=== PATIENT | male | born 1990 | race Caucasian/White ===

== ENCOUNTER 2016-06-06 17:18 | Emergency (ER) | payer BC ==
--- NOTE | 2016-06-06 18:00 | ED NURSING NOTES ---
Clinical Report - Nurses [facility] [address] [place] [address] 06/06/2016 17:19 Patient: VERONIKA MAGALLON TRIAGE Triage time 17:Jun 06 2016. Acuity: LEVEL 3. Chief Complaint: INJURY TO THE RIGHT LITTLE FINGER. IVETH COMA SCORE: [place] Coma Scale: 15- eyes open spontaneously (4); best verbal response- oriented x 4 (5); best motor response- obeys commands (6). --17:28 Gilbert Ellis R.N. 17:25 06/06/16. BP: 143/76. HR: 80. RR: 18. O2 saturation: 98%. Temp: 98.6 F. Pain level now 0/10. --17:28 Gilbert Ellis R.N. Weight: 82.5 kg stated. Height/Length: 72 inches Per Patient. BMI: 24.7. --17:28 Gilbert Ellis R.N. Medications None. --17:26 Gilbert Ellis R.N. Allergies No Known Drug Allergy. --17:27 Gilbert Ellis R.N. History Arrived by private vehicle. Historian: patient. Accompanied by family. This occurred just prior to arrival. He sustained a laceration. ( Got his finger caught in the slider of a gun and it's been bleeding pretty good.). No neck pain, weakness or numbness. 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 PAST MEDICAL HX: Tetanus status: unknown. SOCIAL HX: Current every day light tobacco smoker (cigarette)- less than 1/2 a pack per day. Regular alcohol use. No drug use. SELF HARM ASSESSMENT: A self harm assessment was performed. The patient answered "no" to the question "Have you recently felt down, depressed, or hopeless?" and "Do you have thoughts of harming or killing yourself?". FALL RISK ASSESSMENT: Fall risk assessment completed. No fall risk identified. NUTRITIONAL RISK ASSESSMENT: The nutritional risk assessment revealed no deficiencies. FUNCTIONAL ASSESSMENT: Functional assessment: no impairments noted. LEARNING NEEDS ASSESSMENT: The learning needs assessment revealed no barriers. ABUSE ASSESSMENT: Abuse assessment: (yes) The patient was asked "Do you feel safe in your home?". SKIN INTEGRITY ASSESSMENT: Skin integrity risk assessment completed. No skin integrity risk identified. --17:28 Gilbert Ellis R.N. PROBLEMS: no known problems. ADDITIONAL SURGERIES: no known surgeries. Interventions ID band on patient. --17:28 Gilbert Ellis R.N. PHYSICAL ASSESSMENT Ambulatory to room. GENERAL / NEURO / PSYCH: Oriented X 4. Alert. Appears in no acute distress. EXTREMITIES: Capillary refill is less than 2 seconds in the extremities. Extremity pulses are within normal limits. Extremities exhibit normal ROM. Neuro-vascular status intact to the extremity. SKIN: Skin is warm and dry. Laceration. --17:40 Gilbert lElis R.N. NURSING PROGRESS NOTES Extremity elevated. Reassurance given. Call light placed in reach. Side rails up x 1. Bed placed in lowest position. Brakes of bed on. --17:40 Gilbert Ellis R.N. 17:43 06/06/16. Wound irrigated with 500 mL sterile NS using a high-pressure irrigation system; patient tolerated procedure well. --17:43 Lalo Monson 17:53 06/06/2016 JHZNRTP-QPSNGI-JNHKL PERTUSSIS IM 0.5 mL given. (Lot#: [id number], expiration date: 12/12/2017, Supervisor Salvage: sanofi pasteur). Given in the left deltoid. Allergies verified and confirmed 5 rights. Vaccine information statement provided to the patient. --17:53 Gilbert Ellis R.N. 17:55 06/06/16. Applied dressing consisting of Band-Aid. --17:56 Lalo Monson 17:56 06/06/16. Finger splint applied to right little finger by tech (STAX FINGER SPLINT). --17:56 Lalo Monson. DISPOSITION / DISCHARGE Departure time: 18:05 Jun 06 2016. Condition at departure: improved. No learning barriers present. Discharge instructions provided and reviewed with the patient. Reviewed warnings. Reviewed medication(s). Treatments reviewed. Reviewed referrals. Verbalized understanding. Written instructions provided in Italian. The patient was discharged home and accompanied by sock lining examiner. He left the Emergency Department ambulatory and via private vehicle. Wrist Liner driving. --18:14 Gilbert Ellis R.N. 17:25 06/06/16. BP: 143/76. HR: 80. RR: 18. O2 saturation: 98%. Temp: 98.6 F. Pain level now 0/10. --18:14 Gilbert Ellis R.N. Locked/Released at 06/06/2016 19:16 by Gilbert Ellis R.N.
--- NOTE | 2016-06-06 18:00 | ED NURSING NOTES ---
Clinical Report - Nurses [facility] [address] [place] [address] 06/06/2016 17:19 Patient: VERONIKA MAGALLON TRIAGE Triage time 17:Jun 06 2016. Acuity: LEVEL 3. Chief Complaint: INJURY TO THE RIGHT LITTLE FINGER. IVETH COMA SCORE: [place] Coma Scale: 15- eyes open spontaneously (4); best verbal response- oriented x 4 (5); best motor response- obeys commands (6). --17:28 Gilbert Ellis R.N. 17:25 06/06/16. BP: 143/76. HR: 80. RR: 18. O2 saturation: 98%. Temp: 98.6 F. Pain level now 0/10. --17:28 Gilbert Ellis R.N. Weight: 82.5 kg stated. Height/Length: 72 inches Per Patient. BMI: 24.7. --17:28 Gilbert Ellis R.N. Medications None. --17:26 Gilbert Ellis R.N. Allergies No Known Drug Allergy. --17:27 Gilbert Ellis R.N. History Arrived by private vehicle. Historian: patient. Accompanied by family. This occurred just prior to arrival. He sustained a laceration. ( Got his finger caught in the slider of a gun and it's been bleeding pretty good.). No neck pain, weakness or numbness. 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 PAST MEDICAL HX: Tetanus status: unknown. SOCIAL HX: Current every day light tobacco smoker (cigarette)- less than 1/2 a pack per day. Regular alcohol use. No drug use. SELF HARM ASSESSMENT: A self harm assessment was performed. The patient answered "no" to the question "Have you recently felt down, depressed, or hopeless?" and "Do you have thoughts of harming or killing yourself?". FALL RISK ASSESSMENT: Fall risk assessment completed. No fall risk identified. NUTRITIONAL RISK ASSESSMENT: The nutritional risk assessment revealed no deficiencies. FUNCTIONAL ASSESSMENT: Functional assessment: no impairments noted. LEARNING NEEDS ASSESSMENT: The learning needs assessment revealed no barriers. ABUSE ASSESSMENT: Abuse assessment: (yes) The patient was asked "Do you feel safe in your home?". SKIN INTEGRITY ASSESSMENT: Skin integrity risk assessment completed. No skin integrity risk identified. --17:28 Gilbert Ellis R.N. PROBLEMS: no known problems. ADDITIONAL SURGERIES: no known surgeries. Interventions ID band on patient. --17:28 Gilbert Ellis R.N. PHYSICAL ASSESSMENT Ambulatory to room. GENERAL / NEURO / PSYCH: Oriented X 4. Alert. Appears in no acute distress. EXTREMITIES: Capillary refill is less than 2 seconds in the extremities. Extremity pulses are within normal limits. Extremities exhibit normal ROM. Neuro-vascular status intact to the extremity. SKIN: Skin is warm and dry. Laceration. --17:40 Gilbert Ellis R.N. NURSING PROGRESS NOTES Extremity elevated. Reassurance given. Call light placed in reach. Side rails up x 1. Bed placed in lowest position. Brakes of bed on. --17:40 Gilbert Ellis R.N. 17:43 06/06/16. Wound irrigated with 500 mL sterile NS using a high-pressure irrigation system; patient tolerated procedure well. --17:43 Lalo Monson 17:53 06/06/2016 UYQQWZF-OLVMIR-NHWPS PERTUSSIS IM 0.5 mL given. (Lot#: [id number], expiration date: 12/12/2017, Welding Machine Operator Arc: sanofi pasteur). Given in the left deltoid. Allergies verified and confirmed 5 rights. Vaccine information statement provided to the patient. --17:53 Gilbert Ellis R.N. 17:55 06/06/16. Applied dressing consisting of Band-Aid. --17:56 Lalo Monson 17:56 06/06/16. Finger splint applied to right little finger by tech (STAX FINGER SPLINT). --17:56 Lalo Monson. DISPOSITION / DISCHARGE Departure time: 18:05 Jun 06 2016. Condition at departure: improved. No learning barriers present. Discharge instructions provided and reviewed with the patient. Reviewed warnings. Reviewed medication(s). Treatments reviewed. Reviewed referrals. Verbalized understanding. Written instructions provided in Romansh. The patient was discharged home and accompanied by lead systems architect. He left the Emergency Department ambulatory and via private vehicle. Lieutenant Shift Supervisor driving. --18:14 Gilbert Ellis R.N. 17:25 06/06/16. BP: 143/76. HR: 80. RR: 18. O2 saturation: 98%. Temp: 98.6 F. Pain level now 0/10. --18:14 Gilbert Ellis R.N. Locked/Released at 06/06/2016 19:16 by Gilbert Ellis R.N.
--- NOTE | 2016-06-06 18:00 | ED CLINICAL REPORT ---
Clinical Report - Physicians/Mid Levels [facility] [address] [place] [address] 06/06/2016 17:19 [id number] Time Seen: 17:38 Jun 06 2016. Arrived- By private vehicle. HISTORY OF PRESENT ILLNESS Chief Complaint: Injury to the right 5th (little) finger. The injury happened just prior to arrival. The patient sustained a laceration. ( Patient sustained a laceration to his right hand from a sharp metal object just prior to arrival. Patient arrived on area, came to the emergency department.). REVIEW OF SYSTEMS The patient sustained a laceration. All systems otherwise negative, except as recorded above. PAST HISTORY The patient's dominant hand is the right. He has not had a prior injury to the same area. Tetanus immunization status is unknown. SOCIAL HISTORY Smoker- current status unknown. Alcohol use. ADDITIONAL NOTES The nursing notes have been reviewed. PHYSICAL EXAM Appearance: Alert. Head: Head atraumatic. ENT: Ears normal. CVS: Normal heart rate and rhythm. Heart sounds normal. Respiratory: No respiratory distress. Breath sounds normal. Skin: Skin warm. Extremities: Tip of right little finger: (distal lac at dorsal aspect partial thickness 0.7 cm and lateral to such small 0.3 cm , full rom, good sensation). No wrist injury. Neuro, Vascular and Tendons: Vascular status intact. Motor intact. Neuro: Oriented X 3. PROGRESS AND PROCEDURES PROCEDURES (dermabdon, steri-strips.). Course of Care: No osseous tenderness, no distress. Very stable. NO signs of tendon, ligamentous, neurovascular injury. No signs of nail injury. Patient is stable. Symptoms better. Patient/family counseled. Disposition: Condition: good. CLINICAL IMPRESSION Laceration to the right little finger. INSTRUCTIONS (leave splint on for 48 hours). Warnings: TETANUS: You were given a tetanus shot during your visit. Make a note for future reference. OTC Medications: Take OTC medications according to label instructions. Available over the counter. Acetaminophen (available over the counter): take according to label instructions. Motrin (available over the counter): take according to label instructions. (Electronically signed by Ailyn Ybarra P.A.-C 06/06/2016 19:03)
--- NOTE | 2016-06-06 18:00 | ED ORDER SUMMARY ---
..... Patient: VERONIKA MAGALLON OrderSheet [facility] VisitID: [id number] [address] [place] [address] 25y, M Registration Date/Time: 06/06/2016 ORDER SHEET Weight: 82.5 kg (stated) Allergies: No Known Drug Allergy GENERAL ORDERS: MEDICATION ORDERS: Radughs-Mxyhyg-Gqhaw Pertussis IM 0.5 mL (NOW, per protocol) (17:52 06/06/2016 LWhalen R.N. per protocol) (17:53 LWhalen R.N.) IV FLUIDS: ORDER SHEET NOTES: [Electronically signed by Ailyn Ybarra P.A.-C (19:03 06/06/2016)] [Electronically signed by Gilbert Ellis R.N. (19:16 06/06/2016)] [Electronically locked/signed by Gilbert Ellis R.N. (19:16 06/06/2016)]
--- NOTE | 2016-06-06 18:00 | ED ORDER SUMMARY ---
..... Patient: VERONIKA MAGALLON OrderSheet [facility] VisitID: [id number] [address] [place] [address] 25y, M Registration Date/Time: 06/06/2016 ORDER SHEET Weight: 82.5 kg (stated) Allergies: No Known Drug Allergy GENERAL ORDERS: MEDICATION ORDERS: Jgipowm-Vjmytq-Oxzdu Pertussis IM 0.5 mL (NOW, per protocol) (17:52 06/06/2016 LWhalen R.N. per protocol) (17:53 LWhalen R.N.) IV FLUIDS: ORDER SHEET NOTES: [Electronically signed by Ailyn Ybarra P.A.-C (19:03 06/06/2016)] [Electronically signed by Gilbert Ellis R.N. (19:16 06/06/2016)] [Electronically locked/signed by Gilbert Ellis R.N. (19:16 06/06/2016)]
--- NOTE | 2016-06-06 18:00 | ED CLINICAL REPORT ---
Clinical Report - Physicians/Mid Levels [facility] [address] [place] [address] 06/06/2016 17:19 [id number] Time Seen: 17:38 Jun 06 2016. Arrived- By private vehicle. HISTORY OF PRESENT ILLNESS Chief Complaint: Injury to the right 5th (little) finger. The injury happened just prior to arrival. The patient sustained a laceration. ( Patient sustained a laceration to his right hand from a sharp metal object just prior to arrival. Patient arrived on area, came to the emergency department.). REVIEW OF SYSTEMS The patient sustained a laceration. All systems otherwise negative, except as recorded above. PAST HISTORY The patient's dominant hand is the right. He has not had a prior injury to the same area. Tetanus immunization status is unknown. SOCIAL HISTORY Smoker- current status unknown. Alcohol use. ADDITIONAL NOTES The nursing notes have been reviewed. PHYSICAL EXAM Appearance: Alert. Head: Head atraumatic. ENT: Ears normal. CVS: Normal heart rate and rhythm. Heart sounds normal. Respiratory: No respiratory distress. Breath sounds normal. Skin: Skin warm. Extremities: Tip of right little finger: (distal lac at dorsal aspect partial thickness 0.7 cm and lateral to such small 0.3 cm , full rom, good sensation). No wrist injury. Neuro, Vascular and Tendons: Vascular status intact. Motor intact. Neuro: Oriented X 3. PROGRESS AND PROCEDURES PROCEDURES (dermabdon, steri-strips.). Course of Care: No osseous tenderness, no distress. Very stable. NO signs of tendon, ligamentous, neurovascular injury. No signs of nail injury. Patient is stable. Symptoms better. Patient/family counseled. Disposition: Condition: good. CLINICAL IMPRESSION Laceration to the right little finger. INSTRUCTIONS (leave splint on for 48 hours). Warnings: TETANUS: You were given a tetanus shot during your visit. Make a note for future reference. OTC Medications: Take OTC medications according to label instructions. Available over the counter. Acetaminophen (available over the counter): take according to label instructions. Motrin (available over the counter): take according to label instructions. (Electronically signed by Ailyn Ybarra P.A.-C 06/06/2016 19:03)
--- NOTE | 2016-06-06 19:16 | ED MAR SUMMARY ---
..... Medication Administration Record [facility] [address] [place] [address] Patient: VERONIKA MAGALLON Visit ID: [id number] 25y, M Weight: 82.5 kg Height/Length: 72 in BMI: 24.7 ALLERGIES: No Known Drug Allergy Given 17:53 06/06/2016 Gilbert Ellis R.N. Medication Administered: GDWMUCW-QCHVKV-NMONL PERTUSSIS [IM], Dose: 0.5 mL IM. Medication Ordered: Haoflxw-Cmnycx-Khoyv Pertussis IM 0.5 mL (NOW, per protocol).
--- NOTE | 2016-06-06 19:16 | ED DISCHARGE INSTRUCTIONS ---
Patient: VERONIKA MAGALLON General Instructions [facility] VisitID: [id number] [place] [address] 25y, M Registration Date/Time: 06/06/2016 Laceration to the right little finger. INSTRUCTIONS (leave splint on for 48 hours). Warnings: TETANUS: You were given a tetanus shot during your visit. Make a note for future reference. OTC Medications: Take OTC medications according to label instructions. Available over the counter. Acetaminophen (available over the counter): take according to label instructions. Motrin (available over the counter): take according to label instructions. ADDITIONAL INFORMATION Laceration(Skin Glue) A laceration is a cut through the skin. You have a laceration that has been closed with a type of skin glue. Home Care Medications: Acetaminophen (Tylenol) or ibuprofen (Motrin, Advil) may be taken for pain, unless another pain medicine was prescribed. NOTE: If you have chronic liver or kidney disease or ever had a stomach ulcer or GI bleeding, talk with your doctor before using these medications. General Care: Keep the wound clean and dry. You may shower or bathe as usual, but do not use soaps, lotions, or ointments on the wound area. Do not scrub the wound. After bathing, pat the wound dry with a soft towel. If a bandage was applied and it becomes wet or dirty, replace it. Otherwise, change the bandage every 24 hours. Do not scratch, rub, or pick at the film. Do not place tape directly over the film. Do not apply liquids (such as peroxide), ointments, or creams to the wound while the film is in place. Most skin wounds heal without problems. However, an infection sometimes occurs despite proper treatment. Therefore, watch for the signs of infection listed below. Follow Up as directed by the doctor or our staff. The skin glue film will fall off naturally in 5 to 10 days. Get Prompt Medical Attention if any of the following occur: Signs of infection: Fever of 100.4F (38C) or higher, or as directed by your healthcare provider Increasing pain in the wound Increasing redness or swelling Pus coming from the wound Wound bleeds more than a small amount or bleeding doesnt stop Wound edges come apart You feel numbness or weakness in the wound area that doesnt go away Diphtheria Toxoid Adsorbed, Pertussis Vaccine, Acellular (Adsorbed), Tetanus Toxoid, Adsorbed Suspension for injection What is this medicine? DIPHTHERIA and TETANUS TOXOIDS; PERTUSSIS VACCINE (dif THEER ee uh and TET n us TOK soids; per TUS iss faustinak SEEN) is used to prevent diphtheria, tetanus, and pertussis infections. How should I use this medicine? This vaccine is for injection into a muscle. It is given by a health health careers instructor. A copy of Vaccine Information Statements will be given before each vaccination. Read this sheet carefully each time. The sheet may change frequently. Talk to your social work administrator regarding the use of this vaccine in children. While the DTP vaccine may be given to children ages 6 weeks to 7 years and the Tdap vaccine may be given to children at least 10 years old, precautions do apply. What side effects may I notice from receiving this medicine? Side effects that you should report to your doctor or health health careers instructor as soon as possible: allergic reactions like skin rash, itching or hives, swelling of the face, lips, or tongue breathing problems fever of 103 degrees F or more flu-like symptoms inconsolable crying infection pain, tingling, numbness in the hands or feet seizures swelling of arm or leg that was injected unusually weak or tired Side effects that usually do not require immediate medical attention (report these side effects to your doctor or health health careers instructor if they continue or are bothersome): fussy, irritable loss of appetite fever of 102 degrees F or less pain, tenderness, redness, swelling, or a 'knot' at site where injected vomiting What may interact with this medicine? immune globulin medicines that suppress your immune function like adalimumab, anakinra, infliximab medicines to treat cancer medicines that treat or prevent blood clots like warfarin, enoxaparin, and dalteparin steroid medicines like prednisone or cortisone What if I miss a dose? It is important not to miss your dose. Call your doctor or health health careers instructor if you are unable to keep an appointment. Where should I keep my medicine? This drug is given in a hospital or clinic and will not be stored at home. What should I tell my health care provider before I take this medicine? They need to know if you have any of these conditions: blood disorders like hemophilia fever or infection immune system problems neurologic disease seizures an unusual or allergic reaction to vaccines, thimerosal, latex, other medicines, foods, dyes, or preservatives or trying to get breast-feeding What should I watch for while using this medicine? See your health care provider for all shots of this vaccine as directed. To have protection from infection, you must have 3 shots of this vaccine plus boosters as needed. Tell your doctor right away if you have any serious or unusual side effects after getting this vaccine. You have been given the following additional information: Laceration, Extremity (Skin Glue) Diphtheria Toxoid Adsorbed, Pertussis Vaccine, Acellular (Adsorbed), Tetanus Toxoid, Adsorbed Suspension for injection (Electronically signed by Ailyn Ybarra P.A.-C 06/06/2016 19:03)
--- NOTE | 2016-06-06 19:16 | ED MAR SUMMARY ---
..... Medication Administration Record [facility] [address] [place] [address] Patient: VERONIKA MAGALLON Visit ID: [id number] 25y, M Weight: 82.5 kg Height/Length: 72 in BMI: 24.7 ALLERGIES: No Known Drug Allergy Given 17:53 06/06/2016 Gilbert Ellis R.N. Medication Administered: AIGBVIJ-KPTLOH-ZYJQY PERTUSSIS [IM], Dose: 0.5 mL IM. Medication Ordered: Ppdnxhx-Pjqlzv-Zarwr Pertussis IM 0.5 mL (NOW, per protocol).
--- NOTE | 2016-06-06 19:16 | ED MED RECONCILIATION SUMMARY ---
Patient: VERONIKA MAGALLON Medication Reconciliation Report [facility] VisitID: [id number] [place] [address] 25y, M Registration Date/Time: 06/06/2016 Weight: 82.5 kg Height/Length: 72 in. BMI: 24.7 ALLERGIES: No Known Drug Allergy The patient's Home Medications are listed below: NONE. The source(s) of the original Home Medication information: Not obtained. The following Medications were given to the patient in the Emergency Department: JQZAMFL-INCIDI-WUNTT PERTUSSIS [IM] IM 0.5 mL, administered: 06/06/2016 5:53:00 PM The following Medications were prescribed to the patient: Take OTC medications according to label instructions. Available over the counter. -- Ailyn Ybarra, P.A.-C Acetaminophen (available over the counter): take according to label instructions. -- Ailyn Ybarra, P.A.-C Motrin (available over the counter): take according to label instructions. -- Aiyln Ybarra, P.A.-C
--- NOTE | 2016-06-06 19:16 | ED MED RECONCILIATION SUMMARY ---
Patient: VERONIKA MAGALLON Medication Reconciliation Report [facility] VisitID: [id number] [place] [address] 25y, M Registration Date/Time: 06/06/2016 Weight: 82.5 kg Height/Length: 72 in. BMI: 24.7 ALLERGIES: No Known Drug Allergy The patient's Home Medications are listed below: NONE. The source(s) of the original Home Medication information: Not obtained. The following Medications were given to the patient in the Emergency Department: TUBGAMQ-GKDKDK-HQLNF PERTUSSIS [IM] IM 0.5 mL, administered: 06/06/2016 5:53:00 PM The following Medications were prescribed to the patient: Take OTC medications according to label instructions. Available over the counter. -- Ailyn Ybarra, P.A.-C Acetaminophen (available over the counter): take according to label instructions. -- Ailyn Ybarra, P.A.-C Motrin (available over the counter): take according to label instructions. -- Ailyn Ybarra, P.A.-C
--- NOTE | 2016-06-06 19:16 | ED DISCHARGE INSTRUCTIONS ---
Patient: VERONIKA MAGALLON General Instructions [facility] VisitID: [id number] [place] [address] 25y, M Registration Date/Time: 06/06/2016 Laceration to the right little finger. INSTRUCTIONS (leave splint on for 48 hours). Warnings: TETANUS: You were given a tetanus shot during your visit. Make a note for future reference. OTC Medications: Take OTC medications according to label instructions. Available over the counter. Acetaminophen (available over the counter): take according to label instructions. Motrin (available over the counter): take according to label instructions. ADDITIONAL INFORMATION Laceration(Skin Glue) A laceration is a cut through the skin. You have a laceration that has been closed with a type of skin glue. Home Care Medications: Acetaminophen (Tylenol) or ibuprofen (Motrin, Advil) may be taken for pain, unless another pain medicine was prescribed. NOTE: If you have chronic liver or kidney disease or ever had a stomach ulcer or GI bleeding, talk with your doctor before using these medications. General Care: Keep the wound clean and dry. You may shower or bathe as usual, but do not use soaps, lotions, or ointments on the wound area. Do not scrub the wound. After bathing, pat the wound dry with a soft towel. If a bandage was applied and it becomes wet or dirty, replace it. Otherwise, change the bandage every 24 hours. Do not scratch, rub, or pick at the film. Do not place tape directly over the film. Do not apply liquids (such as peroxide), ointments, or creams to the wound while the film is in place. Most skin wounds heal without problems. However, an infection sometimes occurs despite proper treatment. Therefore, watch for the signs of infection listed below. Follow Up as directed by the doctor or our staff. The skin glue film will fall off naturally in 5 to 10 days. Get Prompt Medical Attention if any of the following occur: Signs of infection: Fever of 100.4F (38C) or higher, or as directed by your healthcare provider Increasing pain in the wound Increasing redness or swelling Pus coming from the wound Wound bleeds more than a small amount or bleeding doesnt stop Wound edges come apart You feel numbness or weakness in the wound area that doesnt go away Diphtheria Toxoid Adsorbed, Pertussis Vaccine, Acellular (Adsorbed), Tetanus Toxoid, Adsorbed Suspension for injection What is this medicine? DIPHTHERIA and TETANUS TOXOIDS; PERTUSSIS VACCINE (dif THEER ee uh and TET n us TOK soids; per TUS iss fa[place] SEEN) is used to prevent diphtheria, tetanus, and pertussis infections. How should I use this medicine? This vaccine is for injection into a muscle. It is given by a [facility] care [facility]. A copy of Vaccine Information Statements will be given before each vaccination. Read this sheet carefully each time. The sheet may change frequently. Talk to your teacher [facility] regarding the use of this vaccine in children. While the DTP vaccine may be given to children ages 6 weeks to 7 years and the Tdap vaccine may be given to children at least 10 years old, precautions do apply. What side effects may I notice from receiving this medicine? Side effects that you should report to your doctor or [facility] as soon as possible: allergic reactions like skin rash, itching or hives, swelling of the face, lips, or tongue breathing problems fever of 103 degrees F or more flu-like symptoms inconsolable crying infection pain, tingling, numbness in the hands or feet seizures swelling of arm or leg that was injected unusually weak or tired Side effects that usually do not require immediate medical attention (report these side effects to your doctor or [facility] if they continue or are bothersome): fussy, irritable loss of appetite fever of 102 degrees F or less pain, tenderness, redness, swelling, or a 'knot' at site where injected vomiting What may interact with this medicine? immune globulin medicines that suppress your immune function like adalimumab, anakinra, infliximab medicines to treat cancer medicines that treat or prevent blood clots like warfarin, enoxaparin, and dalteparin steroid medicines like prednisone or cortisone What if I miss a dose? It is important not to miss your dose. Call your doctor or [facility] if you are unable to keep an appointment. Where should I keep my medicine? This drug is given in a hospital or clinic and will not be stored at home. What should I tell my health care provider before I take this medicine? They need to know if you have any of these conditions: blood disorders like hemophilia fever or infection immune system problems neurologic disease seizures an unusual or allergic reaction to vaccines, thimerosal, latex, other medicines, foods, dyes, or preservatives or trying to get breast-feeding What should I watch for while using this medicine? See your health care provider for all shots of this vaccine as directed. To have protection from infection, you must have 3 shots of this vaccine plus boosters as needed. Tell your doctor right away if you have any serious or unusual side effects after getting this vaccine. You have been given the following additional information: Laceration, Extremity (Skin Glue) Diphtheria Toxoid Adsorbed, Pertussis Vaccine, Acellular (Adsorbed), Tetanus Toxoid, Adsorbed Suspension for injection (Electronically signed by Ailyn Ybarra P.A.-C 06/06/2016 19:03)
== END 2016-06-06 18:05 | disposition home or self-care (01) ==
LOC: ED SRH 17:18
DX: S61.216A Laceration without foreign body of right little finger without damage to nail, initial encounter (principal); W45.8XXA Other foreign body or object entering through skin, initial encounter; Y92.9 Unspecified place or not applicable; Y93.9 Activity, unspecified; Y99.9 Unspecified external cause status; Z23 Encounter for immunization